=== PATIENT | male | born 1945 ===

== ENCOUNTER → 2023-03-22 10:43 | Outpatient (CLI) | payer MEDICARE, SELFPAY ==
--- NOTE | ~2023-03-22 | MR_ITS ---
MRI of the brain Clinical History: Hearing loss Technique: Axial and sagittal T1-weighted images were acquired. These were followed by axial T2-weigh marisabel, diffusion weighted, gradient, and FLAIR images. Coronal thin cut T1-weighted and T2-weighted austin ges, and thin cut axial T1-weighted images, were acquired through the internal auditory canals. Follo wing intravenous administration of 20 cc MultiHance gadolinium, T1-weighted fat-sat imaging was perfo rmed through the brain in the axial and coronal planes. Thin cut T1-weighted coronal and axial postco ntrast imaging was also performed through the internal auditory canals. Findings: There is no acute infarct, internal hemorrhage, or mass lesion. There are minimal chronic m icrovascular ischemic changes. Ventricles and subarachnoid spaces are minimally prominent. Orbits are unremarkable. Paranasal sinuse s and mastoid air cells are clear. Major intracranial flow voids are intact. Sagittal midline structures are intact. No abnormal postcontrast enhancement seen in the brain. No abnormal mass lesion seen at the internal auditory canals or cerebellopontine angle regions. No ab normal enhancement seen in these regions. IMPRESSION: No significant abnormality seen. Reviewed, dictated and finalized at location .
== END ==
PROVIDERS: PCP Otolaryngology; Visit Provider Otolaryngology
DX: H90.5 Unspecified sensorineural hearing loss (principal)
CPT/HCPCS: 70553; A9577

== ENCOUNTER 2025-03-12 15:16 | Outpatient (CLI) | payer MEDICARE, SELFPAY ==
--- NOTE | ~2025-03-12 | XR_ITS ---
EXAMINATION: XR chest 2V DATE: 03/12/2025 15:35 INDICATION: Acute cough TECHNIQUE: frontal view of the chest was obtained. COMPARISON: None FINDINGS: Volume loss in left hemithorax with elevation of left hemidiaphragm likely related to prior partial left pneumonectomy for reported lung cancer. Blunting at the left costophrenic angle and posterior sulcus suggesting small left pleural effusion. Remainder the lungs are clear. No pulmonary edema, pneumo thorax or right-sided pleural effusion. Heart size is normal. Mild thoracic spondylosis with chronic appearing mild anterior wedging of a couple mid thoracic vertebral bodies. There are also bridging osteophytes at multiple levels consistent with diffuse idiopathic skeletal hyperostosis (DISH). IMPRESSION: 1. Volume loss in left hemithorax with elevation the left hemidiaphragm likely related to prior partial left pneumonectomy for reported lung cancer. 2. Small left pleural effusion. Reviewed, dictated and finalized at location A.
== END 2025-03-12 15:17 | disposition home or self-care (01) ==
LOC: MICIMG 15:18
DX: R05.1 Acute cough (principal); J90 Pleural effusion, not elsewhere classified
CPT/HCPCS: 71046